=== PATIENT | male | born 1965 | race Caucasian/White ===

== ENCOUNTER 2025-10-22 14:04 | Emergency (ER) | payer OTHER, SELFPAY ==
[2025-10-22 14:10] VITALS: BP 179/116
[2025-10-22 14:53] LABS: Hematocrit 45.5 % (39.0-52.0); Hemoglobin 15.8 g/dL (13.0-18.0); Mean Corp Hgb Conc. 34.7 g/dL (33.0-37.0); Mean Corpuscular Volume 90.5 fL (80.0-94.0); Nucleated Red Blood Cells % 0 % (-); Platelet Count 250 10^3/uL (130-400); Red Cell Dist. Width 13.1 % (11.5-14.5)
[2025-10-22 14:55] LABS: ALT (SGPT) 33 U/L (0-50); AST (SGOT) 27 U/L (17-59); Albumin 4.6 g/dl (3.5-5.0); Alkaline Phosphatase 69 U/L (38-126); Blood Urea Nitrogen 18 mg/dl (9-20); Calcium 9.9 mg/dl (8.4-10.2); Carbon Dioxide 29 mmol/L (22-30); Chloride 105 mmol/L (98-107); Glucose 86 mg/dl (70-99); Potassium 4.6 mmol/L (3.5-5.1); Sodium 138 mmol/L (135-145); Total Protein 7.8 g/dl (6.3-8.2); eGFR > 60.00
[2025-10-22 15:06] LABS: Troponin I 0.015 ng/ml
--- NOTE | 2025-10-22 15:24 | ED.GENMED ---
History of Present Illness
General
Chief Complaint: Blood Pressure Problem
Source: patient
Exam Limitations: none
Time Seen by Provider: 10/22/25 15:23
History of Present Illness
History of Present Illness:
60yoM with a history of hypertension, hyperlipidemia, and neurosarcoidosis presenting for evaluation of elevated blood pressure. Patient went for a scheduled epidural injection today for his back pain. He was found to be hypertensive with a
systolic blood pressure of 185. Blood pressure was repeated and systolic blood pressure increased to over 200. He was told to go to the ED for evaluation and the procedure was canceled. He reports some minor chest tightness since being told that
his blood pressure was elevated but denies any overt chest pain. He is otherwise asymptomatic and denies any shortness of breath, headache, visual changes, leg swelling. He was previously on blood pressure medications but he stopped all of his
medications 'cold turkey' about 4 to 5 years ago. He had a rheumatology appointment about 6 months ago and systolic blood pressure was in the 160s at that time.
Phy Exam
General Physical Exam
General Presentation: well appearing and no apparent distress
General age: appears stated age
General Skin: warm and dry
General Habitus: normal
General Mental: alert
ENT Exam
ENT Exam: normocephalic
Cardiovascular Exam
Cardiovascular Exam: regular rate/rhythm and no edema
Pulmonary Exam
Pulmonary Exam: lungs clear, no respiratory distress, no rales, no crackles, no rhonchi and no wheezing
Neurological Exam
Neurological Exam: alert
[place] Coma Scale
Eye Opening: Spontaneous
Verbal Response: Oriented
Motor Response: Obeys Commands
GCS Total Score: 15
Skin Exam
Skin Exam: normal color and warm/dry
Psychiatric Exam
Psychiatric Exam: normal mood/affect
Course
Orders/Labs/Results
Orders:
Orders
10/22/25 14:15
Electrocardiogram (*1) Urgent
Reason for Study: Hypertension, Benign
EKG- Treatment ONCE
10/22/25 14:23
Complete Blood Count/With Diff Urgent
Comprehensive Metabolic Panel Urgent
Troponin I Urgent
10/22/25 15:44
Amlodipine [Norvasc] 5 mg PO ONCE ONE
Abnormal Lab Results
10/22/25
14:23
MCH 31.4 H pg
(27.0-31.0)
MPV 10.6 H fL
(7.4-10.4)
Absolute Monos (auto) 0.8 H 10^3/uL
(0.1-0.6)
10/22/25 14:23
10/22/25 14:23
Vital Signs
Initial and Last Documented VS:
Initial Vital Signs
Temp Pulse Resp BP Pulse Ox
98.2 F 69 16 179/116 98
10/22/25 14:10 10/22/25 14:10 10/22/25 14:10 10/22/25 14:10 10/22/25 14:10
Last Documented Vital Signs
Temp Pulse Resp BP Pulse Ox
98.2 F 59 18 204/137 98
10/22/25 14:10 10/22/25 15:47 10/22/25 15:47 10/22/25 15:47 10/22/25 15:47
MDM/Problems Addressed
Differential Diagnosis Includes:
60yoM here for elevated BP at an outpatient appt. Does endorse some chest tightness which started a few hours ago when he was told his BP was high which he believes is from anxiety. No overt pain. Otherwise asymptomatic. BP 179/116 in triage. He is
well appearing in no distress. Differential diagnosis includes: asymptomatic hypertension, hypertensive emergency
Workup initiated in triage. EKG shows sinus bradycardia without acute ST changes and troponin normal. Renal function normal. No signs of end organ damage or signs of hypertensive emergency. Repeat BP checked by nursing staff increased. Offered to
observe patient in ED and obtain repeat troponin. Patient states he is otherwise feeling well and feels comfortable with discharge which is reasonable. He was previously on amlodipine several years ago so will restart this. Prescription for 5mg
amlodipine given and he was advised to f/u with PCP. Strict ED return precautions reviewed and he was discharged in stable condition.
*Pulse Oximetry
SaO2: 98
Oxygen Mode of Delivery: Room air
Patient hypoxic: no
*EKG
Interpreted by ED Provider?: Yes
EKG Intrepretation Date: 10/22/25
Heart Rate: 59
Rate: bradycardiac
Rhythm: sinus
[place]: left axis deviation
Interval: normal interval
QRS Pattern: normal QRS
Ischemia: no ischemia
*Critical Care Note
Total Time (30-74mins, 75-104mins- exclusive of procedures): Not Applicable
ED Attending Note
-
Portions of this chart may have been created with voice recognition software.� Occasional wrong word or��sound alike� substitutions may have occurred due to the inherent limitations of voice recognition software.
Discharge Plan
Departure
Patient Disposition: Home (Routine Discharge)
Date of Disposition: 10/22/25
Time of Disposition: 15:47
Patient with high blood pressure during this ER visit?: Yes
Discharge Problem:
Hypertension
Instructions: High Blood Pressure (DC), Amlodipine
Prescriptions:
New
amlodipine 5 mg tablet
5 mg PO DAILY Qty: 30 0RF
Referrals:
[facility] [Provider Group]
NONE,* [Family Provider, Internal Medicine]
Activity Restrictions/Additional Instructions:
Take amlodipine as prescribed.
Please schedule a follow-up appointment with a family doctor for blood pressure recheck. Return to the ER with any worsening symptoms including chest pain, severe headache, or stroke-like symptoms
Interventions
Interventions:
*Risk Screen - Suicide (C-SSRS) Last Done: 10/22/25 14:10
*Nursing Disposition Last Done: 10/22/25 16:01
ED- Cardiac Assessment Last Done: 10/22/25 15:47
ED- Neurological Assessment Last Done: 10/22/25 15:47
ED- Pulmonary Assessment Last Done: 10/22/25 15:47
Discharge Date and Time
Discharge Date/Time: 10/22/25 16:01
Print Language: KOREAN
[2025-10-22 15:47] VITALS: BP 204/137
[2025-10-22] MEDS: NORVASC 5 MG PO (15:52)
== END 2025-10-22 16:01 | disposition home or self-care (01) ==
LOC: EMR 14:04
PROVIDERS: Emergency Medicine; EMERGENCY PHYSICIAN Emergency Medicine
DX: I10 Essential (primary) hypertension (principal); E78.5 Hyperlipidemia, unspecified; R07.89 Other chest pain; R00.1 Bradycardia, unspecified
CPT/HCPCS: 99284; 80053; 84484; 85025; 93005